=== PATIENT | male | born 1955 | race African-American/Black ===

== ENCOUNTER 2018-08-28 16:24 | Emergency (ER) | payer MEDICAID ==
[~2018-08-28] VITALS: Ht 185.4 cm; Wt 91.2 kg
[2018-08-28 16:30] VITALS: BP 144/81
[2018-08-28] MEDS ORDERED: PENICILLIN G BENZ 1200000 UNITS/2 ML SYRG IM ONE (17:30)
== END 2018-08-28 17:44 | disposition home or self-care (01) ==
LOC: ER 16:30
DX: S81.811D Laceration without foreign body, right lower leg, subsequent encounter (principal); E11.9 Type 2 diabetes mellitus without complications; F17.210 Nicotine dependence, cigarettes, uncomplicated; F12.10 Cannabis abuse, uncomplicated; I25.2 Old myocardial infarction; Z20.2 Contact with and (suspected) exposure to infections with a predominantly sexual mode of transmission; X58.XXXD Exposure to other specified factors, subsequent encounter
CPT/HCPCS: 96372; 99283; J0561